=== PATIENT | male | born 1995 | race Caucasian/White ===

== ENCOUNTER 2017-12-02 15:21 | Emergency (ER) | payer OTHER ==
[~2017-12-02] VITALS: Ht 180.3 cm; Wt 108.9 kg
[2017-12-02 15:23] VITALS: BP 142/73
[2017-12-02] MEDS ORDERED: IBUPROFEN 400 MG TABLET. PO ONE (16:00)
--- NOTE | 2017-12-02 16:16 | RAD ---
History: Severe pain and swelling. Ankle injury December 01, 2017. Comparison: None. Findings: AP, lateral, and oblique views of the right ankle. No fracture is identified involving the tibia or the fibula. Ankle mortise appears preserved. On the frontal view, lateral process of the talus is apparently enlarged. Lateral ankle soft tissue swelling is seen. Impression: 1. The lateral process of the talus is apparently enlarged. This could be on a developmental basis. Changes of previous lateral talar fracture would also be possible. It would difficult to exclude acute fracture. 2. No evidence of tibial or fibular fracture. 3. Lateral ankle soft tissue swelling. Electronically signed by: Henry Cheatham MD (12/02/2017 4:13 PM) [facility] [place]
--- NOTE | 2017-12-02 17:11 | RAD ---
EXAM: CT of the right ankle DATE: 12/02/2017 4:36 PM INDICATION: Right ankle injury 12/01/17, pain, questionable talus fracture COMPARISON: No Prior FINDINGS: Is no evidence of acute fracture. There is an accessory ossicle at the lateral process of the talus, possibly os talus accessorius. Between the interface of the accessory ossicle and the talus there is sclerosis and associated cystic change, likely symptomatic. This may also result in internal impingement given the close proximity to the fibula. This ossicle is also in close proximity to the peroneal tendons. No definite additional fracture or dislocation is seen. Talar dome is intact. There is a low-lying soleus. The peroneal tendons are seen posterior to the lateral malleolus. No ankle joint effusion. IMPRESSION: 1. There is no evidence of acute fracture or dislocation. 2. Accessory ossicle is seen adjacent to the lateral talar process with associated sclerosis and cystic change at the interface, which may imply symptomatic nature. Given the proximity to the fibula and peroneal tendons, may predispose to impingement. Electronically signed by: Cuong Martin MD (12/02/2017 5:08 PM) [facility]
[2017-12-02] MEDS ORDERED: TRAM-48 PO (17:28)
[2017-12-02] MEDS ORDERED: IBUP800T19 PO (17:28)
--- NOTE | 2017-12-02 17:28 | PHYS DOC ---
Past History Past Medical History: No Pertinent History Past Surgical History: No Surgical History Smoking: Non-smoker Alcohol Use: Occasionally Drug Use: None Adult General Chief Complaint Chief Complaint: ANKLE PROBLEM HPI HPI Patient is a 22 year old male who presents with complaining of right ankle pain after he injured his ankle last night during playing football. Patient states he twisted his ankle and even use walking boot and applied ice and took ibuprofen last night his feeling pain with walking. Patient rated his pain moderate and denies focal neuro deficit and other injuries. Review of Systems Review of Systems Constitutional: Denies fever or chills [] Eyes: Denies change in visual acuity, redness, or eye pain [] HENT: Denies nasal congestion or sore throat [] Respiratory: Denies cough or shortness of breath [] Cardiovascular: No additional information not addressed in HPI [] GI: Denies abdominal pain, nausea, vomiting, bloody stools or diarrhea [] : Denies dysuria or hematuria [] Musculoskeletal: Denies back pain, reports joint pain [] Integument: Denies rash or skin lesions [] Neurologic: Denies headache, focal weakness or sensory changes [] Endocrine: Denies polyuria or polydipsia [] All other systems were reviewed and found to be within normal limits, except as documented in this note. Current Medications Current Medications Current Medications Medications (Trade) Dose Ordered Sig/Azalia Start Time Stop Time Status Last Admin Dose Admin Ibuprofen (Motrin) 800 mg 1X ONCE 12/02/17 16:00 12/02/17 16:01 DC 12/02/17 16:19 800 MG Allergies Allergies Allergies Coded Allergies Type Severity Reaction Last Updated Verified No Known Drug Allergies 12/02/17 No Physical Exam Physical Exam Constitutional: Well developed, well nourished, no acute distress, non-toxic appearance. [] HENT: Normocephalic, atraumatic Eyes: PERRLA, EOMI, conjunctiva normal, no discharge. [] Neck: Normal range of motion, no tenderness, supple, no stridor. [] Cardiovascular:Heart rate regular rhythm, no murmur [] Lungs & Thorax: Bilateral breath sounds clear to auscultation [] Extremities: Right lower extremity without deformity, right lateral malleolus tenderness and mild edema and painful range of motion, no neurovascular deficit Neurologic: Alert and oriented X 3, normal motor function, normal sensory function, no focal deficits noted. [] Psychologic: Affect normal, judgement normal, mood normal. [] Current Patient Data Vital Signs Vital Signs Date Time Temp Pulse Resp B/P (MAP) Pulse Ox O2 Delivery O2 Flow Rate FiO2 12/02/17 15:23 98.0 64 16 98 Room Air EKG EKG [] Radiology/Procedures Radiology/Procedures [address] [address] IMAGING REPORT Signed PATIENT: TONY NUNEZ ACCOUNT: [id number] : 1995 LOCATION: ER AGE: 22 SEX: M EXAM STATUS: PRE ER ORD. PHYSICIAN: GUERRERO HAGAN MD REASON: Right ankle injury 12/01/17, pain, questionable talus fracture PROCEDURE: CT LOWER EXTREMITY WO RIGHT EXAM: CT of the right ankle DATE: 12/02/2017 4:36 PM INDICATION: Right ankle injury 12/01/17, pain, questionable talus fracture COMPARISON: No Prior FINDINGS: Is no evidence of acute fracture. There is an accessory ossicle at the lateral process of the talus, possibly os talus accessorius. Between the interface of the accessory ossicle and the talus there is sclerosis and associated cystic change, likely symptomatic. This may also result in internal impingement given the close proximity to the fibula. This ossicle is also in close proximity to the peroneal tendons. No definite additional fracture or dislocation is seen. Talar dome is intact. There is a low-lying soleus. The peroneal tendons are seen posterior to the lateral malleolus. No ankle joint effusion. IMPRESSION: 1. There is no evidence of acute fracture or dislocation. 2. Accessory ossicle is seen adjacent to the lateral talar process with associated sclerosis and cystic change at the interface, which may imply symptomatic nature. Given the proximity to the fibula and peroneal tendons, may predispose to impingement. Electronically signed by: Cuong Martin MD (12/02/2017 5:08 PM) [facility] DICTATED AND SIGNED BY: CUONG MARTIN MD DATE: 12/02/17 8070 CC: GUERRERO HAGAN MD; NON,STAFF ~ [place] [address] IMAGING REPORT Signed PATIENT: TONY NUNEZ ACCOUNT: [id number] : 1995 LOCATION: ER AGE: 22 SEX: M EXAM STATUS: PRE ER ORD. PHYSICIAN: GUERRERO HAGAN MD REASON: Right ankle injury 12/01/17, severe pain and swelling PROCEDURE: ANKLE RIGHT 3V History: Severe pain and swelling. Ankle injury December 01, 2017. Comparison: None. Findings: AP, lateral, and oblique views of the right ankle. No fracture is identified involving the tibia or the fibula. Ankle mortise appears preserved. On the frontal view, lateral process of the talus is apparently enlarged. Lateral ankle soft tissue swelling is seen. Impression: 1. The lateral process of the talus is apparently enlarged. This could be on a developmental basis. Changes of previous lateral talar fracture would also be possible. It would difficult to exclude acute fracture. 2. No evidence of tibial or fibular fracture. 3. Lateral ankle soft tissue swelling. Electronically signed by: Henry Le MD (12/02/2017 4:13 PM) [facility] [place] DICTATED AND SIGNED BY: HENRY LE MD DATE: 12/02/17 161 CC: GUERRERO HAGAN MD; NON,STAFF ~ Course & Med Decision Making Course & Med Decision Making Pertinent Imaging studies reviewed. (See chart for details) Evaluation of patient in ER showed 22-year-old male patient with sports injury to right ankle with pain and edema. Ankle x-ray and CT did not show acute fracture. Patient had walking boot and crutches was provided. Plan discharge patient home with diagnosis of ankle sprain and instruction to follow with orthopedic physician. Patient instructed to avoid of playing sports at least for one week. Dragon Disclaimer Dragon Disclaimer This electronic medical record was generated, in whole or in part, using a voice recognition dictation system. Departure Departure: Impression: Primary Impression: Sprain of ankle, right Disposition: 01 HOME, SELF-CARE (at 1725) Condition: IMPROVED Referrals: NON,STAFF (PCP) Patient Instructions: Ankle Sprain, Acute, with Phase I Rehab-SportsMed Additional Instructions: Apply ice on right ankle Follow-up with cost consultant orthopedic physician call [phone] to make an appointment in one or 2 days Return to ER if not getting better Scripts Tramadol Hcl (ULTRAM) 50 Mg Tablet 50 MG PO PRN Q6HRS PRN for PAIN, #20 TAB Prov: GUERRERO HAGAN MD 12/02/17 Ibuprofen (IBUPROFEN) 800 Mg Tablet 1 TAB PO TID, #30 TAB Prov: GUERRERO HAGAN MD 12/02/17 GUERRERO HAGAN MD Dec 02, 2017 17:28
[2017-12-02] MEDS ORDERED: HYDROcodone/APAP 5/325MG 1 TAB TABLET PO ONE (17:50)
== END 2017-12-02 17:43 | disposition home or self-care (01) ==
LOC: ER 15:21
DX: S93.401A Sprain of unspecified ligament of right ankle, initial encounter (principal); X50.1XXA Overexertion from prolonged static or awkward postures, initial encounter; Y93.61 Activity, american tackle football; Y92.89 Other specified places as the place of occurrence of the external cause; Y99.8 Other external cause status
CPT/HCPCS: 73610; 73700; 99284-25